=== PATIENT | male | born 1930 | race Caucasian/White ===

== ENCOUNTER 2019-11-27 10:09 | Emergency (ER) | payer MEDICARE, OTHER ==
[~2019-11-27] VITALS: Ht 175.3 cm; Wt 72.9 kg
[~2019-11-27 10:09] MED LIST: APIX5TAB3 PO; CHOL10008 PO; FINA5TAB11 PO; LANS30CA56 PO; OCUVITE PO; SIMV20TA PO; TAMS0.4C32 PO
[2019-11-27 11:25] LABS: HEMATOCRIT 41.9 % (42.0-52.0); MEAN CORPUSCULAR VOLUME 93.7 FL (78-98); RED BLOOD COUNT 4.47 X10'6 (4.70-6.10); WHITE BLOOD COUNT 10.6 X10'3 (4.5-11.0)
[2019-11-27 11:26] LABS: BASOPHILS % (AUTO) 0.3 % (0-1); EOSINOPHILS % (AUTO) 0.3 % (0-6); LYMPHOCYTES # (AUTO) 0.9 X10'3 (1.1-4.8); LYMPHOCYTES % (AUTO) 8.9 % (21-51); MEAN CORPUSCULAR HEMOGLOBIN 31.4 PG (27.0-31.0); MEAN CORPUSCULAR HGB CONC 33.6 g/dL (33.0-36.5); MEAN PLATELET VOLUME 7.8 FL (7.4-10.4); MONOCYTES % (AUTO) 9.5 % (2-12); NEUTROPHILS # (AUTO) 8.6 X10'3 (1.8-7.7); NEUTROPHILS % (AUTO) 81 % (42-75); PLATELET COUNT 176 X10'3 (140-440); RED CELL DISTRIBUTION WIDTH 13.9 % (11.5-14.5)
[2019-11-27 11:32] LABS: ALANINE AMINOTRANSFERASE 12 U/L (12-78); ALBUMIN 3.5 G/DL (3.4-5.0); ALKALINE PHOSPHATASE 59 IU/L (46-116); ANION GAP 4 (8-16); ASPARTATE AMINO TRANSFERASE 18 U/L (10-37); BILIRUBIN,TOTAL 0.6 MG/DL (0.1-1.0); BLOOD UREA NITROGEN 19 MG/DL (7-18); BUN/CREATININE RATIO 18.4 (5.4-32.0); CALCIUM 8.9 MG/DL (8.5-10.1); CHLORIDE 106 MMOL/L (99-107); CREATININE 1.03 MG/DL (0.60-1.10); GLUCOSE 114 MG/DL (70-104); LIPASE 91 U/L (73-393); POTASSIUM 3.9 MMOL/L (3.5-5.1); SODIUM 139 MMOL/L (135-145); TOTAL CARBON DIOXIDE 28.9 MMOL/L (24-32); TOTAL PROTEIN 7.1 G/DL (6.4-8.2); eGFR 68 ML/MIN
[2019-11-27] MEDS ORDERED: morphine 4 MG/ML inj SYRINge IV PRN (11:35)
[2019-11-27] MEDS ORDERED: ondansetron/PF 4mg/2ml inj IV ONE (11:35)
[2019-11-27] MEDS ORDERED: normal saline 1000ML IV soln IVB ONE (11:35)
[2019-11-27 11:41] LABS: CLARITY,URINE CLEAR (Clear); COLOR,URINE YELLOW (Yellow); GLUCOSE, URINE NEGATIVE (Neg); KETONES,URINE NEGATIVE (Neg); LEUKOCYTE ESTERASE ,URINE NEGATIVE (Neg); NITRITES, URINE NEGATIVE (Neg); OCCULT BLOOD,URINE NEGATIVE (Neg); PH,URINE 8.5 (4.8-8.0); PROTEIN,URINE NEGATIVE (Neg)
[2019-11-27 11:46] LABS: UA COLLECTION TYPE CLN CATCH MIDSTREAM
[2019-11-27] MEDS ORDERED: ONDA4TAB6 PO (13:10)
[2019-11-27] MEDS ORDERED: HYDR-4383 PO (13:10)
[2019-11-27 15:48] VITALS: BP 133/73
== END 2019-11-27 15:24 | disposition home or self-care (01) ==
LOC: ER 10:09
DX: R10.32 Left lower quadrant pain (principal); R19.7 Diarrhea, unspecified; K21.9 Gastro-esophageal reflux disease without esophagitis; I48.91 Unspecified atrial fibrillation; I10 Essential (primary) hypertension; Z88.5 Allergy status to narcotic agent; Z91.013 Allergy to seafood; Z79.899 Other long term (current) drug therapy
CPT/HCPCS: 36415; 74176; 80053; 81003; 83690; 85025; 96361; 96374; 96375; 99284; J2270; J2405; J7030